=== PATIENT | female | born 1950 | race African-American/Black ===

== ENCOUNTER → 2017-03-09 | Outpatient (CLI) | payer MEDICARE | LOC: RAD 15:12 | PROVIDERS: ATTEND Family Medicine | DX: Z12.31 Encounter for screening mammogram for malignant neoplasm of breast (principal) | CPT/HCPCS: 77067 ==

== ENCOUNTER → 2017-10-31 | Outpatient (CLI) | payer MEDICARE ==
--- NOTE | 2017-10-31 10:51 | Diagnostic Imaging Report ---
INDICATION: Back pain Three views were obtained. FINDINGS: The alignment of thoracic spine is normal. Vertebral body heights are well-maintained. There is no fracture or traumatic subluxation. There are mild degenerative changes. IMPRESSION: Mild thoracic spondylosis, otherwise unremarkable. Dictated by: Dictated on workstation # [id number]
== END ==
LOC: RAD 09:56
PROVIDERS: ATTEND Family Medicine
DX: M47.814 Spondylosis without myelopathy or radiculopathy, thoracic region (principal)
CPT/HCPCS: 72072

== ENCOUNTER → 2017-11-22 | Outpatient (CLI) | payer MEDICARE ==
--- NOTE | 2017-11-22 17:45 | Diagnostic Imaging Report ---
INDICATION: Fall with right wrist pain. AP, oblique, and lateral views of the right wrist are obtained. FINDINGS: There is a calcification dorsal to the carpal row on the lateral view, which may represent a triquetral fracture. Followup is recommended. Remaining bony structures are intact. There is some chronic irregularity of the distal radius. IMPRESSION: Calcification dorsal to the carpal row on the lateral view, which may represent a triquetral avulsion fracture. Followup is recommended. There are some underlying chronic changes. There is some chronic appearing irregularity of the distal radius. Dictated by: Dictated on workstation # [id number]
== END ==
LOC: RAD 11:53
PROVIDERS: ATTEND Family Medicine
DX: M89.8X3 Other specified disorders of bone, forearm (principal); M25.531 Pain in right wrist; W19.XXXA Unspecified fall, initial encounter
CPT/HCPCS: 73110

== ENCOUNTER → 2017-12-06 | Outpatient (CLI) | payer MEDICARE ==
--- NOTE | 2017-12-06 08:59 | Diagnostic Imaging Report ---
INDICATION: Fall with ulnar-sided pain. TIME OF EXAM: 09:09 a.m. Correlation is made with prior wrist radiographs from 11/22/2017. A distal radius and ulna are intact. A calcific density noted along the dorsum of the carpus on lateral view is again seen, suggestive of a triquetral fracture. No other fractures are seen. Metacarpals are intact. Distal radius and ulna are intact. IMPRESSION: Stable wrist radiographs. There continues to be features suggestive of a triquetral fracture. Dictated by: Dictated on workstation # [id number]
== END ==
LOC: RAD 08:10
PROVIDERS: ATTEND Family Medicine
DX: M25.531 Pain in right wrist (principal); W19.XXXA Unspecified fall, initial encounter
CPT/HCPCS: 73110

== ENCOUNTER → 2017-12-28 | Outpatient (CLI) | payer MEDICARE ==
--- NOTE | 2017-12-28 14:40 | Diagnostic Imaging Report ---
INDICATION: Right wrist fracture. AP, oblique, and lateral views of the right wrist are obtained and compared with 12/06/2017. FINDINGS: Calcification is again noted dorsal to the carpal row on the lateral view, which may be a triquetral avulsion. This is unchanged in appearance compared to the previous study. Remaining bony structures are unremarkable. IMPRESSION: Stable views of the right wrist with unchanged calcification dorsal to the carpal row which may be a triquetral avulsion. Remaining bony structures are unremarkable. Dictated by: Dictated on workstation # [id number]
== END ==
LOC: RAD 13:24
PROVIDERS: ATTEND Family Medicine
DX: S62.91XA Unspecified fracture of right hand, initial encounter for closed fracture (principal); M85.89 Other specified disorders of bone density and structure, multiple sites
CPT/HCPCS: 73110

== ENCOUNTER → 2018-03-15 | Outpatient (CLI) | payer MEDICARE ==
--- NOTE | 2018-03-16 20:53 | Diagnostic Imaging Report ---
INDICATION: Routine screening. COMPARISON: 03/09/2017 and 03/03/2016. TECHNIQUE: 2D and 3D bilateral screening mammography was performed with CAD. FINDINGS: Both breasts are primarily involutional. Benign calcifications are scattered throughout both breasts. No mass or malignant appearing microcalcifications are seen. The axillae are unremarkable. IMPRESSION: No mammographic features suspicious for malignancy are identified. ACR BI-RADS Category 2: Benign findings. Result letter will be mailed to the patient. Note: At least 10% of breast cancer is not imaged by mammography. Dictated on workstation # [id number]
== END ==
LOC: RAD 14:08
PROVIDERS: ATTEND Family Medicine
DX: Z12.31 Encounter for screening mammogram for malignant neoplasm of breast (principal)
CPT/HCPCS: 77067

== ENCOUNTER → 2018-12-18 | Outpatient (CLI) | payer MEDICARE ==
--- NOTE | 2018-12-18 09:49 | Diagnostic Imaging Report ---
PROCEDURE: MRI left upper extremity without contrast. TECHNIQUE: Multiplanar, multisequence non contrast-enhanced MRI of the left upper extremity was accomplished. INDICATION: Left shoulder pain. There are no prior studies available for comparison. On the T2 fat-saturated coronal series, there is an area of abnormal signal along the anterior insertion of the rotator cuff. This would be consistent with a small rim rent tear. The supraspinatus muscle in this area is slightly bunched but the muscle is not retracted. The bursal aspect of the rotator cuff is also somewhat indistinct and may be slightly frayed. There is hypertrophy of the acromioclavicular joint and this does result in narrowing of the outlet for the supraspinatous muscle. The biceps tendon and subscapularis tendon are intact. The labrum is thinned centrally and may be slightly torn on a degenerative basis. There is no evidence for joint effusion. There is no abnormal signal arise from the osseous structures to indicate bone edema or fracture. IMPRESSION: 1. There is a small rim rent tear along the anterior insertion of the rotator cuff. The supraspinatous muscle in this area is slightly blunted but is not retracted. The indistinct appearance of the bursal aspect of the rotator cuff does suggest that this portion of the cuff is slightly frayed as well. 2. There is hypertrophy at the acromioclavicular joint and this does result in narrowing of the outlet for the supraspinatus muscle. 3. The labrum is thinned and most likely slightly torn on degenerative basis. 4. There is no acute bony abnormality appreciated. Dictated by: Dictated on workstation # [id number]
== END ==
LOC: RAD 07:53
PROVIDERS: ATTEND Nurse Practitioner Family
DX: M75.102 Unspecified rotator cuff tear or rupture of left shoulder, not specified as traumatic (principal); M25.812 Other specified joint disorders, left shoulder
CPT/HCPCS: 73221

== ENCOUNTER → 2020-07-01 | Outpatient (CLI) | payer MEDICARE ==
--- NOTE | 2020-07-01 09:51 | Diagnostic Imaging Report ---
INDICATION: Routine screening. COMPARISON: 03/15/2018 and 03/09/2017. TECHNIQUE: 2D and 3D bilateral screening mammography was performed with CAD. FINDINGS: Both breasts are primarily involutional. Benign calcifications are again noted bilaterally. No mass or malignant appearing microcalcifications are seen. The axillae are unremarkable. IMPRESSION: No mammographic features suspicious for malignancy are identified. ACR BI-RADS Category 2: Benign findings. Result letter will be mailed to the patient. Note: At least 10% of breast cancer is not imaged by mammography. Dictated by: Dictated on workstation # [id number]
== END ==
LOC: RAD 08:00
PROVIDERS: ATTEND Family Medicine
DX: Z12.31 Encounter for screening mammogram for malignant neoplasm of breast (principal)
CPT/HCPCS: 77063; 77067

== ENCOUNTER → 2020-09-15 | Outpatient (CLI) | payer MEDICARE ==
[2020-09-15 07:50] LABS: BILIRUBIN,URINE NEGATIVE (NEGATIVE); CLARITY,URINE CLEAR; COLOR,URINE YELLOW; GLUCOSE, URINE (UA) NEGATIVE (NEGATIVE); KETONES,URINE NEGATIVE (NEGATIVE); LEUKOCYTE ESTERASE ,URINE 2+ (NEGATIVE); NITRITE,URINE NEGATIVE (NEGATIVE); PROTEIN,URINE NEGATIVE (NEGATIVE)
[2020-09-15 08:01] LABS: HEMOGLOBIN 12.4 g/dL (11.5-16.0)
[2020-09-15 08:03] LABS: MEAN PLATELET VOLUME 12.2 fL (9.0-12.2); WHITE BLOOD COUNT 8.1 10^3/uL (4.3-11.0)
[2020-09-15 08:12] LABS: RBC,URINE 0-2 /HPF
[2020-09-15 08:13] LABS: BACTERIA,URINE MODERATE /HPF; WBC,URINE 25-50 /HPF
[2020-09-15 08:14] LABS: ALANINE AMINOTRANSFERASE 15 U/L (0-55); ALBUMIN 4.1 GM/DL (3.2-4.5); ALKALINE PHOSPHATASE 40 U/L (40-136); BILIRUBIN,TOTAL 0.4 MG/DL (0.1-1.0); BUN/CREATININE RATIO 14; CALCIUM 9.7 MG/DL (8.5-10.1); CARBON DIOXIDE 24 MMOL/L (21-32); CHLORIDE 106 MMOL/L (98-107); CREATININE SERUM 0.85 MG/DL (0.60-1.30); GFR ESTIMATED > 60; GLUCOSE 112 MG/DL (70-105); POTASSIUM 3.9 MMOL/L (3.6-5.0); SODIUM 141 MMOL/L (135-145); TOTAL PROTEIN 7.2 GM/DL (6.4-8.2)
== END ==
LOC: LAB 07:01
PROVIDERS: ATTEND Family Medicine
DX: N39.0 Urinary tract infection, site not specified (principal)
CPT/HCPCS: 36415; 80053; 81000; 84443; 85027; 87077; 87088

== ENCOUNTER → 2021-07-21 | Outpatient (CLI) | payer MEDICARE ==
--- NOTE | 2021-07-21 10:59 | Diagnostic Imaging Report ---
INDICATION: Routine screening. Comparison is made with prior mammogram from 07/01/2020 and 03/15/2018. 2-D and 3-D bilateral screening mammography was performed with CAD. CAD is utilized. The current study was also evaluated with a Computer Aided Detection (CAD) system. Both breasts are primarily involutional. Benign calcifications are scattered throughout both breasts. No mass or malignant-appearing microcalcifications are seen. Axillae are unremarkable. IMPRESSION: BI-RADS Category 2 No mammographic features suspicious for malignancy are identified. ACR BI-RADS Category 2: Benign findings. Result letter will be mailed to the patient. Note: At least 10% of breast cancer is not imaged by mammography. Dictated by: Dictated on workstation # [id number]
== END ==
LOC: RAD 08:04
PROVIDERS: ATTEND Family Medicine
DX: Z12.31 Encounter for screening mammogram for malignant neoplasm of breast (principal)
CPT/HCPCS: 77063; 77067

== ENCOUNTER → 2022-07-27 | Outpatient (CLI) | payer MEDICARE ==
--- NOTE | 2022-07-27 15:29 | Diagnostic Imaging Report ---
INDICATION: Routine screening. COMPARISON: 07/21/2021 and 07/01/2020. TECHNIQUE: 2D and 3D bilateral screening mammography was performed with CAD. FINDINGS: Scattered fibroglandular densities are identified bilaterally. There are benign calcifications scattered throughout both breasts. No mass or malignant-appearing microcalcifications are identified. The axillae are unremarkable. IMPRESSION: No mammographic features suspicious for malignancy are identified. ACR BI-RADS Category 2: Benign findings. Result letter will be mailed to the patient. Note: At least 10% of breast cancer is not imaged by mammography. Dictated by: Dictated on workstation # [id number]
== END ==
LOC: RAD 14:14
PROVIDERS: ATTEND Family Medicine
DX: Z12.31 Encounter for screening mammogram for malignant neoplasm of breast (principal)
CPT/HCPCS: 77063; 77067